=== PATIENT | female | born 1940 | race Caucasian/White ===

== ENCOUNTER 2018-08-18 15:00 | Emergency (ER) | payer SELFPAY ==
[2018-08-18 16:31] LABS: Absolute Lymphocytes (CBC) 1.8 K/uL (0.7-4.9); Absolute Monocytes 0.4 K/uL (0.1-1.3); Basophils % 0.6 % (0-1.3); Eosinophils % 4.8 % (0-4.4); Hematocrit 37.2 % (36.0-45.0); Lymphocytes % 32.5 % (15.3-44.8); MPV 8.7 fL (7.6-11.3); Monocytes % 7.9 % (3.3-12.3); RBC Red Blood Cell Count 4.18 M/uL (3.86-4.86)
[2018-08-18] MEDS ORDERED: NA CHLORIDE 0.9% 1,000 ML ONE (16:42)
[2018-08-18 16:43] LABS: Urine Blood NEGATIVE (NEG); Urine Glucose NEGATIVE (NEG); Urine Protein NEGATIVE (NEG); Urine Specific Gravity <1.005 (1.005-1.030); Urine pH 5.5 (5.0-7.0)
[2018-08-18 16:52] LABS: Urine Bacteria <20 /HPF (<20); Urine RBC NONE SEEN /HPF (NONE SEEN)
[2018-08-18 16:53] LABS: Urine Culture Reflex Order REFLEXED
[2018-08-18 16:55] LABS: ALT/SGPT 29 U/L (12-78); AST/SGOT 25 U/L (15-37); Alkaline Phosphatase 108 U/L (45-117); BUN Blood Urea Nitrogen 17 mg/dL (7-18); Bicarbonate 31 mmol/L (21-32); Bilirubin Direct < 0.1 mg/dL (0-0.2); Bilirubin Total 0.2 mg/dL (0.2-1.0); Glucose Level 78 mg/dL (74-106); Lipase 195 U/L (73-393); Potassium 3.7 mmol/L (3.5-5.1); Protein, Total 7.2 g/dL (6.4-8.2); Sodium Level 140 mmol/L (136-145)
--- NOTE | 2018-08-18 18:47 | ER ---
Nurse's Notes [facility] Name: Sussy Cobos Age: 78 yrs Sex: Female : 1940 Arrival Date: 08/18/2018 Time: 15:06 Bed 25 Private MD: Diagnosis: Dehydration;Diarrhea, unspecified Presentation: 08/18 15:39 Presenting complaint: Patient states: Intermittent diarrhea since end of June, ph states, " I am here visiting and I am feeling dehydrated." Pt reports having diarrhea this morning, also reports fatigue and dizziness, placed on Cipro in Nov by PCP but not currently taking. Transition of care: patient was not received from another setting of care. Onset of symptoms was August 18, 2018. Risk Assessment: Do you want to hurt yourself or someone else? Patient reports no desire to harm self or others. Care prior to arrival: None. 15:39 Method Of Arrival: Ambulatory ph 15:39 Acuity: MELANIE 3 ph 15:51 Initial Sepsis Screen: Does the patient meet any 2 criteria? No. Patient's initial ed1 sepsis screen is negative. Does the patient have a suspected source of infection? No. Patient's initial sepsis screen is negative. Historical: - Allergies: 15:46 meloxicam; ph 15:46 Azithromycin; ph - PMHx: 15:46 GERD; RLS; ph - PSHx: 15:46 Hysterectomy; wrist sx; Appendectomy; sinus sx; ph - Immunization history:: Adult Immunizations up to date. - Social history:: Smoking status: Patient/guardian denies using tobacco. - Ebola Screening: : Patient negative for fever greater than or equal to 101.5 degrees Fahrenheit, and additional compatible Ebola Virus Disease symptoms Patient denies exposure to infectious person Patient denies travel to an Ebola-affected area in the 21 days before illness onset No symptoms or risks identified at this time. Screenin:51 Abuse screen: Denies threats or abuse. Denies injuries from another. Nutritional ed1 screening: No deficits noted. Tuberculosis screening: No symptoms or risk factors identified. Fall Risk None identified. Assessment: 15:51 General: Appears in no apparent distress. Behavior is calm, cooperative. Pain: Denies ed1 pain. Neuro: Level of Consciousness is awake, alert, obeys commands, Oriented to person, place, time, situation. Cardiovascular: Denies chest pain, Heart tones S1 S2 present. Respiratory: Airway is patent Respiratory effort is even, unlabored, Respiratory pattern is regular, symmetrical, Breath sounds are clear bilaterally. GI: Abdomen is non-distended, Bowel sounds present X 4 quads. Abd is soft and non tender X 4 quads. Reports diarrhea, Patient currently denies nausea, vomiting. : No signs and/or symptoms were reported regarding the genitourinary system. EENT: No signs and/or symptoms were reported regarding the EENT system. Derm: Skin is intact, is healthy with good turgor, Skin is dry, Skin is normal, Skin temperature is warm. Musculoskeletal: Circulation, motion, and sensation intact. 16:00 Reassessment: I agree with previous assessment. hb 16:53 Reassessment: Patient appears in no apparent distress at this time. No changes from ed1 previously documented assessment. Patient and/or family updated on plan of care and expected duration. Pain level reassessed. Patient is alert, oriented x 3, equal unlabored respirations, skin warm/dry/pink. Pt does not like where the IV was placed and requested that it be d/c'd and placed elsewhere Patient denies pain at this time. 17:48 Reassessment: Patient appears in no apparent distress at this time. No changes from ed1 previously documented assessment. Patient and/or family updated on plan of care and expected duration. Pain level reassessed. Patient is alert, oriented x 3, equal unlabored respirations, skin warm/dry/pink. Patient denies pain at this time. 18:19 Reassessment: Patient appears in no apparent distress at this time. No changes from ed1 previously documented assessment. Patient and/or family updated on plan of care and expected duration. Pain level reassessed. Patient is alert, oriented x 3, equal unlabored respirations, skin warm/dry/pink. Vital Signs: 15:42 BP 144 / 62; Pulse 77; Resp 16; Temp 98.3; Pulse Ox 100% on R/A; Weight 58.97 kg; ph Height 5 ft. 4 in. (162.56 cm); 16:39 BP 119 / 59 Supine; Pulse 71; ed1 16:39 BP 142 / 78 Standing; Pulse 73; ed1 16:39 BP 139 / 68 Sitting; Pulse 71; ed1 17:48 BP 150 / 66; Pulse 78; Resp 17; Pulse Ox 100% on R/A; Pain 0/10; ed1 18:21 BP 133 / 73; Pulse 83; Resp 17; Pulse Ox 99% on R/A; Pain 0/10; ed1 15:42 Body Mass Index 22.31 (58.97 kg, 162.56 cm) ph ED Course: 15:06 Patient arrived in ED. mr 15:42 Triage completed. ph 15:46 Arm band placed on. ph 15:47 Timo Fregoso, MAMAODU is PHCP. pm1 15:47 Luke Juarez MD is Attending Physician. pm1 15:51 Ale Garcia LVN is Primary Nurse. ed1 15:51 Patient has correct armband on for positive identification. Placed in gown. Bed in low ed1 position. Call light in reach. Adult w/ patient. 16:00 Urine collected: clean catch specimen, clear, franco colored, Amount Voided: 20mL. jp3 16:20 Inserted saline lock: 22 gauge in left antecubital area, using aseptic technique. Blood jp3 collected. 16:20 Initial lab(s) drawn, by dc, sent to lab. jp3 16:32 Urine Microscopic Only Sent. jp3 16:33 Basic Metabolic Panel Sent. jp3 16:33 CBC with Diff Sent. jp3 16:33 Creatinine for Radiology Sent. jp3 16:33 Hepatic Function Sent. jp3 16:33 Lipase Sent. jp3 16:40 IV discontinued, intact, bleeding controlled, No redness/swelling at site. Pressure jp3 dressing applied, patient requested IV be moved to an area outside of elbow. 16:40 Inserted saline lock: 22 gauge in right forearm, using aseptic technique. jp3 18:52 No provider procedures requiring assistance completed. IV discontinued, intact, ed1 bleeding controlled, No redness/swelling at site. Pressure dressing applied. Administered Medications: 17:00 Drug: NS 0.9% 1000 ml Route: IV; Rate: 1000 ml; Site: right forearm; ed1 18:20 Follow up: IV Status: Completed infusion; IV Intake: 1000ml ed1 Intake: 18:20 IV: 1000ml; Total: 1000ml. ed1 Outcome: 18:46 Discharge ordered by . pm1 18:52 Discharged to home ambulatory, with family. ed1 18:52 Condition: good 18:52 Discharge instructions given to patient, Instructed on discharge instructions, follow up and referral plans. Demonstrated understanding of instructions, follow-up care. 18:54 Patient left the ED. ed1 Signatures: Silvia Basurto Erika, OFFICE MESSENGER HELPER OFFICE MESSENGER HELPER ed1 Brigida Kelley, RN RN ph Timo Fregoso, MAMADOU [employer] CONSULTANT pm1 Antoinette Roche RN RN Mj Guerrero RN RN mg2 Masoud Romero jp3 Corrections: (The following items were deleted from the chart) 16:54 16:39 BP 119 / 59 Supine; mg2 ed1 16:54 16:39 BP 139 / 68 Sitting; mg2 ed1 16:54 16:39 BP 142 / 78 Standing; mg2 ed1
--- NOTE | 2018-08-18 18:47 | EDPHYS ---
Physician Documentation [facility] Name: Sussy Cobos Age: 78 yrs Sex: Female : 1940 Arrival Date: 08/18/2018 Time: 15:06 Bed 25 Private MD: ED Physician Luke Juarez HPI: 08/18 16:30 This 78 yrs old Female presents to ER via Ambulatory with complaints of pm1 dehydration. 16:30 The patient presents to the emergency department with diarrhea, 1-3 times per day in pm1 the morning since . Possible causes: sick contacts, by family, . The symptoms are aggravated by nothing. The symptoms are alleviated by nothing. Associated signs and symptoms: Pertinent negatives: abdominal pain, constipation, dysuria, fever, nausea, vomiting. Severity of symptoms: Severity of symptoms: in the emergency department the symptoms are unchanged. The patient has not experienced similar symptoms in the past. Patient with complaints of daily diarrhea since . She and her started having diarrhea after eating a salad. She and her went to their PCP and received antibiotics, Cipro. Her 's' diarrhea resolved but hers continued. Followed up with PCP and was prescribed additional Cipro at an increased dosage. Patient decided that she did not want to take th second round of Cipro. Patient is eating throughout the day. No abdominal pain or fever. No vomiting. Diarrhea only occurs in the AM . 16:30 Patient is concerned that she is dehydrated because she has the sensation of dry mouth pm1 and dry eyes. Historical: - Allergies: 15:46 meloxicam; ph 15:46 Azithromycin; ph - PMHx: 15:46 GERD; RLS; ph - PSHx: 15:46 Hysterectomy; wrist sx; Appendectomy; sinus sx; ph - Immunization history:: Adult Immunizations up to date. - Social history:: Smoking status: Patient/guardian denies using tobacco. - Ebola Screening: : Patient negative for fever greater than or equal to 101.5 degrees Fahrenheit, and additional compatible Ebola Virus Disease symptoms Patient denies exposure to infectious person Patient denies travel to an Ebola-affected area in the 21 days before illness onset No symptoms or risks identified at this time. ROS: 16:30 Constitutional: Negative for fever, chills, and weight loss, Eyes: Negative for injury, pm1 pain, redness, and discharge, ENT: Negative for injury, pain, and discharge, Neck: Negative for injury, pain, and swelling, Cardiovascular: Negative for chest pain, palpitations, and edema, Respiratory: Negative for shortness of breath, cough, wheezing, and pleuritic chest pain. 16:30 Back: Negative for injury and pain, : Negative for injury, bleeding, discharge, and swelling, MS/Extremity: Negative for injury and deformity, Skin: Negative for injury, rash, and discoloration, Neuro: Negative for headache, weakness, numbness, tingling, and seizure. 16:30 Abdomen/GI: Positive for diarrhea, Negative for abdominal pain, nausea and vomiting. Exam: 16:30 Constitutional: This is a well developed, well nourished patient who is awake, alert, pm1 and in no acute distress. Head/Face: Normocephalic, atraumatic. Eyes: Pupils equal round and reactive to light, extra-ocular motions intact. Lids and lashes normal. Conjunctiva and sclera are non-icteric and not injected. Cornea within normal limits. Periorbital areas with no swelling, redness, or edema. ENT: Nares patent. No nasal discharge, no septal abnormalities noted. Tympanic membranes are normal and external auditory canals are clear. Oropharynx with no redness, swelling, or masses, exudates, or evidence of obstruction, uvula midline. Mucous membranes moist. Neck: Trachea midline, no thyromegaly or masses palpated, and no cervical lymphadenopathy. Supple, full range of motion without nuchal rigidity, or vertebral point tenderness. No Meningismus. Chest/axilla: Normal chest wall appearance and motion. Nontender with no deformity. No lesions are appreciated. Cardiovascular: Regular rate and rhythm with a normal S1 and S2. No gallops, murmurs, or rubs. Normal PMI, no JVD. No pulse deficits. Respiratory: Lungs have equal breath sounds bilaterally, clear to auscultation and percussion. No rales, rhonchi or wheezes noted. No increased work of breathing, no retractions or nasal flaring. Abdomen/GI: Soft, non-tender, with normal bowel sounds. No distension or tympany. No guarding or rebound. No evidence of tenderness throughout. Back: No spinal tenderness. No costovertebral tenderness. Full range of motion. Skin: Warm, dry with normal turgor. Normal color with no rashes, no lesions, and no evidence of cellulitis. MS/ Extremity: Pulses equal, no cyanosis. Neurovascular intact. Full, normal range of motion. 16:30 Neuro: Orientation: is normal, Motor: is normal, moves all fours, Sensation: is normal, no obvious gross deficits, Gait: is steady, at a normal pace, without difficulty. Vital Signs: 15:42 BP 144 / 62; Pulse 77; Resp 16; Temp 98.3; Pulse Ox 100% on R/A; Weight 58.97 kg; ph Height 5 ft. 4 in. (162.56 cm); 16:39 BP 119 / 59 Supine; Pulse 71; ed1 16:39 BP 142 / 78 Standing; Pulse 73; ed1 16:39 BP 139 / 68 Sitting; Pulse 71; ed1 17:48 BP 150 / 66; Pulse 78; Resp 17; Pulse Ox 100% on R/A; Pain 0/10; ed1 18:21 BP 133 / 73; Pulse 83; Resp 17; Pulse Ox 99% on R/A; Pain 0/10; ed1 15:42 Body Mass Index 22.31 (58.97 kg, 162.56 cm) ph MDM: 15:47 Patient medically screened. pm1 18:45 Data reviewed: vital signs. Data interpreted: Pulse oximetry: on room air is 99 %. pm1 Interpretation: normal. Counseling: I had a detailed discussion with the patient and/or guardian regarding: the historical points, exam findings, and any diagnostic results supporting the discharge/admit diagnosis, lab results, the need for outpatient follow up, to return to the emergency department if symptoms worsen or persist or if there are any questions or concerns that arise at home. 18:45 ED course: Patient unable to provide a stool sample in the ER. pm1 08/18 15:57 Order name: Basic Metabolic Panel; Complete Time: 17:03 pm1 08/18 15:57 Order name: CBC with Diff; Complete Time: 16:39 pm1 08/18 15:57 Order name: Creatinine for Radiology; Complete Time: 17:03 pm1 08/18 15:57 Order name: Hepatic Function; Complete Time: 17:03 pm1 08/18 15:57 Order name: Lipase; Complete Time: 17:03 pm1 08/18 16:23 Order name: Urine Microscopic Only; Complete Time: 17:03 pm1 08/18 15:57 Order name: IV Saline Lock; Complete Time: 16:32 pm1 08/18 15:57 Order name: Labs collected and sent; Complete Time: 16:32 pm1 08/18 15:57 Order name: Orthostatic Blood Pressure; Complete Time: 16:39 pm1 08/18 15:57 Order name: Urine Dipstick-Ancillary (obtain specimen); Complete Time: 16:32 pm1 08/18 16:34 Order name: Urine Dipstick--Ancillary (enter results) bd 08/18 16:53 Order name: Urine Culture EDMS Administered Medications: 17:00 Drug: NS 0.9% 1000 ml Route: IV; Rate: 1000 ml; Site: right forearm; ed1 18:20 Follow up: IV Status: Completed infusion; IV Intake: 1000ml ed1 Disposition: 08/18/18 18:46 Discharged to Home. Impression: Dehydration, Diarrhea, unspecified. - Condition is Stable. - Discharge Instructions: Food Choices to Help Relieve Diarrhea, Adult, Dehydration, Adult, Diarrhea, Adult, Rehydration, Adult. - Medication Reconciliation Form, Thank You Letter, Antibiotic Education, Prescription Opioid Use form. - Follow up: Emergency Department; When: As needed; Reason: Worsening of condition. Follow up: Private Physician; When: 2 - 3 days; Reason: Recheck today's complaints, Continuance of care, Re-evaluation by your physician. - Problem is new. - Symptoms have improved. Addendum: 08/20/2018 15:34 Co-signature as Attending Physician, Luke Juarez MD. m a2 Signatures: Dispatcher [employer] EDMS Ale Garcia, MACHINIST BENCH MACHINIST BENCH ed1 Brigida Kelley, KAITY RN Timo Gomez, COMMUNITY SERVICES OFFICER COMMUNITY SERVICES OFFICER pm1 Luke Juarez MD MD ma2 Corrections: (The following items were deleted from the chart) 08/18 18:54 18:46 08/18/2018 18:46 Discharged to Home. Impression: Dehydration; Diarrhea, ed1 unspecified. Condition is Stable. Forms are Medication Reconciliation Form, Thank You Letter, Antibiotic Education, Prescription Opioid Use. Follow up: Emergency Department; When: As needed; Reason: Worsening of condition. Follow up: Private Physician; When: 2 - 3 days; Reason: Recheck today's complaints, Continuance of care, Re-evaluation by your physician. Problem is new. Symptoms have improved. pm1
== END 2018-08-18 18:54 | disposition home or self-care (01) ==
LOC: ER 15:00
DX: E86.0 Dehydration (principal); R19.7 Diarrhea, unspecified
CPT/HCPCS: 36415; 80048; 80076; 81003; 81015; 83690; 85025; 87086; 87088; 96360; 99284; J7030

== ENCOUNTER 2024-03-23 07:56 | Day surgery (SDC) | payer OTHER ==
[2024-03-20 12:09] LABS: Absolute Eosinophils 0.1 K/uL (0-0.5); Absolute Monocytes 0.3 K/uL (0.1-1.3); Basophils % 0.9 % (0-1.3); Hematocrit 35.3 % (36.0-45.0); Hemoglobin 11.6 g/dL (12.0-15.0); Lymphocytes % 29.8 % (15.3-44.8); MCH 29.6 pg (27.0-35.0); MCHC 32.8 g/dL (32.0-36.0); MCV 90.1 fL (80-100); MPV 8.8 fL (7.6-11.3); Monocytes % 9.2 % (3.3-12.3); Neutrophils % 58.1 % (41.7-73.7); Nucleated Red Blood Cells % 0.1 % (0-0); Platelets 191 thou/uL (152-406); RBC Red Blood Cell Count 3.92 M/uL (3.86-4.86); Red Cell Distribution Width 13.1 % (12.1-15.2)
[2024-03-20 12:10] LABS: Anion Gap 6.1 mEq/L (5.0-15.0); Potassium 4.1 mEq/L (3.5-5.1)
--- NOTE | 2024-03-20 17:04 | EKG ---
Test Date: 2024-03-20 Test Time: 11:40:40 Oil Well Engineer: KATHE MEASUREMENT RESULTS: Intervals: Rate: 54 OK: 142 QRSD: 76 QT: 398 QTc: 377 Deane: P: 65 OK: 142 QRS: 59 T: 72 INTERPRETIVE STATEMENTS: Sinus bradycardia Low voltage QRS Borderline ECG No previous ECG available for comparison Electronically Signed On 03-20-24 17:03:34 CDT by Nehemias Black
[2024-03-23] MEDS ORDERED: LIDOCAINE 1% MPF 5 ML VIAL ONE (08:44)
[2024-03-23] MEDS ORDERED: propofoL 200 MG/20 ML VIAL IV ONE (08:44)
[2024-03-23] MEDS ORDERED: propofoL 1,000 MG/100 ML VIAL IV ONE (08:45)
[2024-03-23] MEDS: SCOPOLAMINE HYDROBROMIDE PATCH TD ONE (08:56)
[2024-03-23] MEDS: Ringers Lactate 1,000 ML IV ONE (08:56)
[2024-03-23] MEDS ORDERED: FENTANYL CITR 100 MCG/2 ML ONE (09:08)
[2024-03-23] MEDS ORDERED: ROCURONIUM 50 MG/5 ML VIAL IV ONE (09:09)
[2024-03-23] MEDS: LIDOCAINE HCL/EPINEPHRINE 20 ML MDV ONE (09:13)
[2024-03-23] MEDS: CEFAZOLIN SODIUM 2 GM/VIAL ONE (09:13)
[2024-03-23] MEDS ORDERED: ONDANSETRON 4 MG/2 ML VIAL ONE (09:34)
[2024-03-23] MEDS ORDERED: dexAMETHasone 10 MG/ML VIAL ONE (09:34)
[2024-03-23] MEDS ORDERED: CEFAZOLIN SODIUM 1 GM/VIAL ONE (09:50)
[2024-03-23] MEDS ORDERED: EPHEDRINE SULF 50 MG/ML VIAL ONE (10:01)
[2024-03-23] MEDS: BUPIVACAINE 0.25% PF 10 ML VIAL ONE (10:57)
--- NOTE | 2024-03-23 12:35 | RAD REPORT ---
EXAM DESCRIPTION: RAD - Fluoroscopy <1 Hour - 03/23/2024 11:48 am CLINICAL HISTORY: SACRAL NEURO MODULATION COMPARISON: None available. FINDINGS: Forty-six Images were sent to PACS, documenting fluoroscopy use during an image guided sac ral neuromodulator placement procedure. No radiologist was available for the procedure, nor will any image interpretation he provided. Please refer to the procedural report for additional details. Fluoroscopy time: 0.8 minutes. IMPRESSION: Documentation of fluoroscopy utilization as above.
[2024-03-23 13:16] VITALS: BP 132/52; TEMP 97.1; O2SAT 100
--- NOTE | 2024-03-23 21:40 | OP ---
Date of Procedure: 03/23/2024 Surgeon: Samanta Renteria MD Preoperative Diagnoses: Urge urinary incontinence and fecal incontinence. Postoperative Diagnoses: Urge urinary incontinence and fecal incontinence. Procedures Performed: 1.Complete InterStim system implantation with incision and implantation of quadripolar tined leads i nto the S3 foramen under fluoroscopic guidance for needle placement. 2.Subcutaneous implantation of sacral nerve neurostimulator and electronic analysis and programming. Anesthesia: General endotracheal. Specimens: No specimens. Complications: No complications. Drains: No drains. Implants: Neurostimulator. Condition: Stable. Estimated Blood Loss: Minimal. Findings: Left S3 was used for lead placement and the left buttock was used for pocket implantation. Leads #0 had mild plantar flexion of the toe and lead 2 had no response on the toe. However, leads 1 and 3 had strong response on the toe and all 4 leads had strong response for Stephanie. Right S3 wa s tested with a needle and there was not a good response with Stephanie or toe flexion and therefore, t he left was chosen. Indications: The patient is an 83-year-old with significant urgency, frequency, and urinary incontin ence. Fecal incontinence episodes as well. She was treated conservatively, which was not adequate t o give her treatment response. She had percutaneous nerve evaluation in the office. Once this was c omplete, an optimal response was documented. She was then consented for stage 1 and 2 of the InterSt im in the hospital. After medical clearance, she was brought to the OR. In the preoperative area, c onsent was done again with her daughter by her side. Description Of Procedure: After explaining all the postoperative instructions clearly, she was taken to the OR. 2 g of Ancef were given. SCDs were placed. After general endotracheal anesthesia was induced, she w as placed in a prone position by the OR protocol. Pillows were placed under her abdomen to flatten h er sacrum and the shins to allow the toes to dangle freely. The patient was prepped and draped in a sterile fashion using ChloraPrep. The C-arm was draped and moved into the AP position to provide flu oroscopic mapping of the sacral region including the midline of the sacrum, the SI joints, sciatic no tches, and medial foraminal borders and sacral foramina. Pessary was identified. The C-arm was plac ed in a lateral position to image the area from the sacral promontory to the coccyx. After making all the surface markings 9 cm above the coccyx in the midline and 2 cm on either sides. Based on the mapped area of the right entry, the needle was placed 1.5 cm superior and slightly lat eral to it and the foramen was entered and angle appeared to be slightly in the lower portion of the foramen. However. Here, there was a Stephanie and toe response, however, since the angle was not opti mal, this was repositioned to be slightly more superior in the foramina and with the angle from later al to medial. In this position when the test was done, there was no response. Therefore, S3 was the n injected at the skin and the periosteum and needle was placed into S3 and confirmed by fluoroscopy. On testing, there was a very strong response of Stephanie and toes. Therefore, decided to place the lead here. The depth of the needle was confirmed fluoroscopically. Then, the needle stylet was removed and the bidirectional guide was placed and it was confirmed fluoroscopically. The foramina needle was then r emoved. The incision was made with an 11 blade on either side of the bidirectional guide through the fascial layer and the lead introducer sheath down the dilator were placed and over the guide and dir ected into foramen. To ensure that the radiopaque marker of the lead introducer did not extend beyon d the anterior to the sacrum, the dilator was unlocked and removed along with the guide. The lead wa s then placed through the introducer sheath to the first white line and position was checked fluorosc opically and the lead was then further introduced until 3 electrodes were visible below the sacrum. Each electrode was tested for location, for outflow visualization of Stephanie, and plantar flexion of the great toe. As dictated, the lead 0 had good Stephanie, but no toe response. Lead 1 had strong Stephanie and toes le ad to no toe response at all, but strong Stephanie and lead 3 had strong Stephanie and toe. This was an optimal test and so once the position was confirmed both in the AP and lateral positions, the introdu cer sheath was retracted under continuous fluoroscopy, then deploying the tined leads into the presac ral tissue. Further incision was made in the subcutaneous tissues posterior to the iliac crest on the left side l ateral to the sacrum. Blunt dissection was continued until the gluteal fascia was identified and hem ostasis was achieved with the Bovie. A sufficient pocket was created for the neurostimulator. A kailey neling tool with straw was placed from the lead exit site subcutaneously to the incised pocket site. The tunneling tool was then removed and the lead was fed through the straw and pulled out the pocket site. The lead was then cleansed off bodily fluids and dried. The lead was inserted into the neuro stimulator head and the metal bands were aligned with the blue tip clearly as was well in the distal portion of the header. The single set screw was then tightened with a hex wrench. The mid inner stimulator was placed into the subcutaneous pocket with the etched identification side slightly upwards slightly rotated, likely because of the direction of the pocket main. Care was take n to place the excessively winded under the neurostimulator. The programming head was then placed ov er the implanted neurostimulator in a sterile cover to ensure adequate lead connection and the parame ters were within normal limits. Once the impedances were confirmed to be within normal limits, this was taken out of the field. The wounds were irrigated with antibiotic solution and sterile water and closed with the help of 3-0 Vicryl subcuticular sutures x3 and continuous running 4-0 Monocryl for the skin. Simple Monocryl sut ure to bury at the lead site and these were closed with the help of Steri-Strips and Mastisol and all the sites were injected with Marcaine 0.25% and sterile bandages were placed. The patient was recov ered from anesthesia and placed on the bed in the supine position and she was extubated and then brou ght to the PACU. EBL was minimal. The patient was transferred in a satisfactory condition and her d sukumar was debriefed about her procedure. Using the clinician programmer operator numerical control, the generator will be programmed and then she will be discharged home . Follow up in 3 weeks. Instruction sheet in the chart. LYLA/COREEN Voice ID: [id number] Report ID: [id number]
== END 2024-03-23 12:28 | disposition home or self-care (01) ==
LOC: OR 07:56
PROVIDERS: ATTEND Obstetrics & Gynecology
PROC: 0JH73BZ Insertion of Single Array Stimulator Generator into Back Subcutaneous Tissue and Fascia, Percutaneous Approach (ICD-10-PCS; 2024-03-23)
PROC: 01HY3MZ Insertion of Neurostimulator Lead into Peripheral Nerve, Percutaneous Approach (ICD-10-PCS; principal; 2024-03-23 09:00)
DX: N39.41 Urge incontinence (principal); R15.9 Full incontinence of feces
CPT/HCPCS: 36415; 76000; 80048; 85025; 93005; C1767; C1778; J0690; J1100; J2001; J2405; J2704; J3010; J7120